=== PATIENT | female | born 1955 ===

== ENCOUNTER 2020-12-01 09:31 | Day surgery (SDC) | payer OTHER ==
[~2020-12-01] VITALS: Ht 162.6 cm; Wt 61.7 kg
[~2020-12-01 09:31] MED LIST: ALPR.25 PO; CALCIUM-MAGNES1 EAC9 PO; FAMO20 PO; HYOS.125 SL; MECL25 PO; MULTIPLE VITAM1 EACH PO; ONDA4 PO; PREMARIN VAG
[2020-12-01] MEDS ORDERED: OMEP20ER PO (10:09)
[2020-12-01] MEDS ORDERED: NIFE10 (10:10)
[2020-12-01] MEDS ORDERED: KLONOPIN0.5 M1 PO (10:10)
[2020-12-01] MEDS ORDERED: CELEXA10 MG PO (10:10)
== END 2020-12-01 12:09 | disposition home or self-care (01) ==
LOC: ORSCSDS 09:31
PROVIDERS: Orthopaedic Surgery
PROC: 0LB60ZZ Excision of Left Lower Arm and Wrist Tendon, Open Approach (ICD-10-PCS; principal; 2020-12-01 10:45)
DX: M67.432 Ganglion, left wrist (principal); K21.9 Gastro-esophageal reflux disease without esophagitis; E78.5 Hyperlipidemia, unspecified; F41.9 Anxiety disorder, unspecified; Z79.899 Other long term (current) drug therapy
CPT/HCPCS: J0690; J1100; J2250; J2405; J2704; J3010; J7120

== ENCOUNTER → 2021-03-05 | Outpatient (CLI) | payer OTHER ==
[~2021-03-05] MED LIST changes: +CELEXA10 MG PO; +KLONOPIN0.5 M1 PO; +NIFE10; +OMEP20ER PO
[2021-03-05 11:16] LABS: BASOPHILS ABSOLUTE AUTO 0.02 K/mm3 (0.00-0.23); BASOPHILS PERCENT AUTO 1 % (0-2); EOSINOPHILS ABSOLUTE AUTO 0.07 K/mm3 (0.00-0.68); EOSINOPHILS PERCENT AUTO 2 % (0-6); Hematocrit 42.1 % (33.0-51.0); Hemoglobin 13.9 g/dL (11.5-16.0); IMMATURE GRAN PERCENT AUTO 0 % (0-1); LYMPHOCYTES ABSOLUTE AUTO 1.24 K/mm3 (0.84-5.20); LYMPHOCYTES PERCENT AUTO 35 % (21-46); MONOCYTES ABSOLUTE AUTO 0.35 K/mm3 (0.16-1.47); MONOCYTES PERCENT AUTO 10 % (4-13); Mean Corpuscular HGB 30.4 pg (26.0-34.0); Mean Corpuscular Volume 92 fL (80-100); NEUTROPHILS ABSOLUTE AUTO 1.88 K/mm3 (1.96-9.15); NEUTROPHILS PERCENT AUTO 53 % (41-73); Platelet Count 279 K/mm3 (150-400); RDW Coefficient Variation 12.3 % (11.7-14.2); RDW Standard Deviation 41.1 fL (35.1-46.3); Red Blood Cell Count 4.57 M/mm3 (3.80-5.20); White Blood Cell Count 3.56 K/mm3 (4.00-11.30)
[2021-03-05 12:06] LABS: Anion Gap 4 mmol/L (6-16); Blood Urea Nitrogen 12 mg/dL (8-24); CO2, Blood 26 mmol/L (21-32); Chloride, Blood 110 mmol/L (98-108); Glomerular Filtration Rate >60 (60-); Glucose, Blood 97 mg/dL (70-99); Potassium, Blood 3.8 mmol/L (3.5-5.5); Sodium, Blood 140 mmol/L (136-145)
== END | disposition home or self-care (01) ==
LOC: PLD 11:12 → LAB SHORT 11:12
PROVIDERS: Physician Assistant Surgical
DX: R10.32 Left lower quadrant pain (principal)
CPT/HCPCS: 80048; 85025